=== PATIENT | female | born 1960 | race Caucasian/White ===

== ENCOUNTER 2018-10-19 11:57 | Emergency (ER) | payer OTHER ==
[~2018-10-19] VITALS: Ht 165.1 cm; Wt 78.9 kg
[2018-10-19 12:59] VITALS: Ht 165.1 cm; Wt 78.9 kg
[2018-10-19 14:45] VITALS: BP 124/79
== END 2018-10-19 14:55 | disposition home or self-care (01) ==
LOC: ED 11:57
DX: S50.01XA Contusion of right elbow, initial encounter (principal); F41.9 Anxiety disorder, unspecified; V49.59XA Passenger injured in collision with other motor vehicles in traffic accident, initial encounter; Y93.I9 Activity, other involving external motion; Y92.413 State road as the place of occurrence of the external cause; Y99.8 Other external cause status